=== PATIENT | male | born 1990 | race Caucasian/White ===

== ENCOUNTER 2017-09-08 19:15 | Emergency (ER) | payer MEDICAID, OTHER ==
[2017-09-08 19:21] VITALS: BP 130/89; PULSE 59; RESP 20; TEMP 98.1; O2SAT 98
--- NOTE | 2017-09-08 19:41 | EDPHY ---
H & P Time Seen by Provider: 09/08/17 19:30 HPI/ROS: CHIEF COMPLAINT: Blood in stool HISTORY OF PRESENT ILLNESS: Patient is a 27-year-old male who presents to the emergency department with bloody stool. Patient states this is symptoms started last evening. He developed mild abdominal cramping. This morning he awoke and felt urgency to have a bowel movement. He noticed bright red blood in his stool. He has had multiple episodes throughout the day. He continues to feel urgency. He has episodes ago in the bathroom with no stool but just small amounts of blood. He denies specific abdominal pain today. No rectal pain with bowel movement. No fevers or chills. Patient is not lightheaded or dizzy. REVIEW OF SYSTEMS: My complete review of systems is negative except as mentioned in the HPI. Past Medical/Surgical History: Back pain Social history: Positive for THC Smoking Status: Never smoked Physical Exam: 36.7, 130/89, 59, 20, 98% on room air GENERAL: Well-appearing, in no acute distress, alert. HEENT: Eyes normal to inspection, normal pharynx, no signs of dehydration. [place] conjunctiva NECK: No thyromegaly, no lymphadenopathy, supple. RESPIRATORY: Clear to auscultation bilaterally, no rales, rhonchi or wheezing. CVS: Regular rate and rhythm, no rubs, murmurs, or gallops. ABDOMEN: Soft, nontender, nondistended, no organomegaly. Benign Rectal exam: Normal external exam. No palpable mass. No significant tenderness. Normal prostate. BACK: Normal to inspection, no CVA tenderness. SKIN: Normal color, no rash, warm, dry. No pallor. EXTREMITIES: No pedal edema, no calf tenderness, no Homans sign or cords, no joint swelling. NEURO/PSYCH: Alert and oriented, normal mood and affect Constitutional: Initial Vital Signs Temperature (C) 36.7 C 09/08/17 19:17 Heart Rate 59 L 09/08/17 19: Respiratory Rate 20 09/08/17 19:17 Blood Pressure 130/89 H 09/08/17 19:17 O2 Sat (%) 98 09/08/17 19:17 O2 Delivery Mode Room Air Allergies/Adverse Reactions: No Known Allergies Allergy (Unverified 09/08/17 19:17) Home Medications: Medication Instructions Recorded ASPIRIN 09/08/17 Medical Decision Making ED Course/Re-evaluation: In the emergency department I discussed possible etiologies with the patient. I answered all his questions. Laboratory studies were obtained. CBC normal. Patient is not anemic. Coags normal. I discussed the findings with the patient. I answered all his questions. He was given warnings prior to leaving. He will follow up with Gastroenterology. Differential Diagnosis: My differential includes but is not limited to external hemorrhoid, internal hemorrhoid, fissure, diverticulitis, mass, malignancy - Data Points Laboratory Results: Laboratory Results 09/08/17 19:40 09/08/17 09/08/17 19:40 19:40 WBC 7.20 10^3/uL 10^3/uL (3.80-9.50) RBC 5.01 10^6/uL 10^6/uL (4.40-6.38) Hgb 16.2 g/dL g/dL (13.7-17.5) Hct 47.5 % % (40.0-51.0) MCV 94.8 fL fL (81.5-99.8) MCH 32.3 pg pg (27.9-34.1) MCHC 34.1 g/dL g/dL (32.4-36.7) RDW 12.5 % % (11.5-15.2) Plt Count 220 10^3/uL 10^3/uL (150-400) MPV 9.5 fL fL (8.7-11.7) Neut % (Auto) 51.0 % % (39.3-74.2) Lymph % (Auto) 33.6 % % (15.0-45.0) [place] % (Auto) 11.7 % % (4.5-13.0) Eos % (Auto) 2.6 % % (0.6-7.6) Baso % (Auto) 0.8 % % (0.3-1.7) Nucleat RBC Rel Count 0.0 % % (0.0-0.2) Absolute Neuts (auto) 3.67 10^3/uL 10^3/uL (1.70-6.50) Absolute Lymphs (auto) 2.42 10^3/uL 10^3/uL (1.00-3.00) Absolute Monos (auto) 0.84 10^3/uL H 10^3/uL (0.30-0.80) Absolute Eos (auto) 0.19 10^3/uL 10^3/uL (0.03-0.40) Absolute Basos (auto) 0.06 10^3/uL 10^3/uL (0.02-0.10) Absolute Nucleated RBC 0.00 10^3/uL 10^3/uL (0-0.01) Immature Gran % 0.3 % % (0.0-1.1) Immature Gran # 0.02 10^3/uL 10^3/uL (0.00-0.10) PT 13.3 SEC SEC (12.0-15.0) INR 0.99 (0.83-1.16) APTT 25.6 SEC SEC (23.0-38.0) Departure - Departure Disposition: Home, Routine, Self-Care Clinical Impression: Rectal bleeding Condition: Good Instructions: Rectal Bleeding (ED) Additional Instructions: Your not anemic at this time. You need follow-up with a sports leadership instructor. Call Saturday morning to make an appointment. Return with increasing pain, weakness, dizziness, fever or any other concerns. Referrals: Jeramy Conner MD, FACG [Medical Doctor] - As per Instructions
[2017-09-08 19:48] LABS: PLATELET COUNT 220 10^3/uL (150-400)
[2017-09-08 19:57] LABS: INR 0.99 (0.83-1.16); PROTIME(PATIENT) 13.3 SEC (12.0-15.0)
== END 2017-09-08 20:15 | disposition home or self-care (01) ==
DX: K62.5 Hemorrhage of anus and rectum (principal)